=== PATIENT | male | born 1970 | race Caucasian/White ===

== ENCOUNTER 2021-06-20 09:54 | Emergency (ER) | payer BC, SELFPAY ==
--- NOTE | ~2021-06-20 | XR_ITS ---
EXAMINATION: XR chest 2V DATE: 06/20/2021 10:22 INDICATION: Midsternal chest pain TECHNIQUE: PA and lateral views of the chest were obtained. COMPARISON: None FINDINGS: The lungs are clear with no focal airspace opacities, pulmonary edema, pleural effusion or pneumothor ax. The cardiomediastinal silhouette is normal. Mild thoracic spondylosis. IMPRESSION: 1. No acute cardiopulmonary disease. Reviewed, dictated and finalized at location A.
[2021-06-20 09:56] VITALS: BP 206/102; PULSE 89; RESP 16; TEMP 36.6; O2SAT 99
--- NOTE | 2021-06-20 09:57 | ECG_ITS ---
Measurements Intervals [place] Rate: 82 P: 27 OR: 171 QRS: 43 QRSD: 103 T: 2 QT: 378 QTc: 442 Interpretive Statements SINUS RHYTHM BORDERLINE R WAVE PROGRESSION, ANTERIOR LEADS MINIMAL Q WAVES- INFERIOR LEADS BORDERLINE ECG Electronically Signed On 06-20-2021 14:34:08 CDT by Feliciano Singleton D.O.
[2021-06-20 10:19] LABS: Basophils Absolute Auto 0.1 K/mm3 (0.0-0.1); Basophils Percent Auto 1.3 % (0.2-1.2); Eosinophils Absolute Auto 0.2 K/mm3 (0-0.3); Eosinophils Percent Auto 2.8 % (0-4.4); Hematocrit 41.7 % (42.0-52.0); Hemoglobin 14.2 g/dL (14.0-18.0); Immature Granulocyte Absolute 0.04 K/mm3 (0.00-0.031); Immature Granulocyte Percent A 0.5 % (0-0.5); Lymphocytes Absolute Auto 2.94 K/mm3 (0.9-3.2); Lymphocytes Percent Auto 34.7 % (18.3-44.2); Mean Corpuscular HGB Conc 34.1 g/dl (32-36); Mean Corpuscular Hemoglobin 28.4 pg (26-34); Mean Corpuscular Volume 83.4 fl (80-100); Mean Platelet Volume 9.3 fl (7.4-10.4); Monocytes Absolute Auto 0.9 K/mm3 (0.1-0.6); Monocytes Percent Auto 10.7 % (2.6-8.5); Neutrophils Absolute Auto 4.2 K/mm3 (1.3-6.7); Platelet Count Result 282 k/mm3 (150-375); Red Cell Distribution Width 13.1 % (11.5-14.5); White Blood Count 8.5 K/mm3 (4.5-10.0)
[2021-06-20 10:29] LABS: Anion Gap 11 mmol/L (8-16); Blood Urea Nitrogen 14 mg/dL (9-20); Calcium 9.5 mg/dL (8.4-10.2); Carbon Dioxide 30 mmol/L (22-30); Chloride 102 mmol/L (98-107); Estimated CRCL calculation 99 ml/min; Estimated Glomerular Filt Rate > 60; Glucose 148 mg/dL (65-110); Potassium 4.7 mmol/L (3.4-5.0); Sodium 143 mmol/L (137-145)
[2021-06-20 10:31] LABS: INR 0.8; Prothrombin Time 11.4 Seconds (11.1-14.7)
[2021-06-20 10:32] LABS: Partial Thromboplastin Time 25.5 SECONDS (22.3-36.8)
[2021-06-20 10:46] LABS: Troponin I < 0.012 ng/mL (0.000-0.034)
[2021-06-20 11:15] VITALS: BP 165/90; PULSE 83; RESP 18; O2SAT 99
[2021-06-20 12:43] VITALS: BP 167/81; PULSE 73; RESP 18; O2SAT 99
--- NOTE | 2021-06-20 12:46 | ED.CHESTPAIN ---
HPI - Chest Pain General Chief Complaint: Chest Pain Stated Complaint: CP for a few weeks Time Seen by Provider: 06/20/21 11:49 Source: patient Mode of arrival: ambulatory Limitations: no limitations History of Present Illness MD complaint: chest pain and chest discomfort Onset (ago): week(s) (6) Timing of current episode: episodic and increasing Prior episodes: Yes Onset: during rest, during exertion and other (In the evenings) Pain location: substernal and epigastric Pain radiation: other (Left anterior chest) Severity: moderate Quality: aching and heaviness Relieving factors: nothing Exacerbating factors: stress Associated symptoms: other (No nausea, no vomiting, no diaphoresis does have shortness of breath with chest pain occasionally) Treatment prior to arrival: none Risk Factors Coronary artery disease risk factors: diabetes, hyperlipidemia and hypertension Thoracic aortic dissection risk factors: none Related Data Allergies Allergy/AdvReac Type Severity Reaction Status Date / Time Sulfa (Sulfonamide Allergy Other Verified 06/20/21 11:14 Antibiotics) Review of Systems Review of Systems: CONSTITUTIONAL: no fever, no weight loss, no confusion EYES: no vision changes, no eye pain ENT: no rhinorrhea, no sore throat, no difficulty swallowing CARDIOVASCULAR: positive for chest pain, no leg edema, no palpitations RESPIRATORY: no cough, positive for shortness of breath, no hemoptysis GASTROINTESTINAL: no abdominal pain, no nausea, no vomiting, no diarrhea GENITOURINARY: no flank pain, no dysuria, no hematuria SKIN: no rash, no jaundice MUSCULOSKELETAL: no back pain, no trauma. NEUROLOGIC: No headache, no dizziness, no focal weakness PSYCHIATRIC: No hallucinations, no suicidal ideation Exam Narrative: General: alert, afebrile, answering all questions appropriately Head: normocephalic, atraumatic Eyes: EOMI bilaterally, anicteric, no injection ENT: moist mucous membranes, oropharynx patent, no rhinorrhea Neck: supple, trachea midline, no JVD Chest: equal chest rise bilaterally, no chest wall trauma noted Lungs: clear to auscultation bilaterally, respirations unlabored CV: regular rate, no RAE B, calf size equal bilaterally Abd: soft, non-distended, non-tender, no rebound, no gaurding, negative Mejía's EXT: no deformity noted, moving all extremities equally Skin: warm, dry, no pallor Neuro: alert, oriented x 3; CN 2-12 grossly intact, no dysarthria Psych: affect appropriate, though content normal Course Course Emergency Course: Patient remained chest pain-free in the ED. Troponin negative x2. EKG normal sinus rhythm with no acute changes no ectopy. Heart score equals 3. Patient feels safe for discharge discharge and will follow up with his primary doctor this week without fail. Patient told to return if chest pain, shortness of breath, fever, productive cough leg swelling or any concern Reevaluation(s) Reevaluation #1: Patient remains chest pain-free second troponin pending normal sinus rhythm on the monitor Date: 06/20/21 Time: 12:51 Vital Signs Vital signs: Vital Signs Temperature 36.6 C 06/20/21 09:56 Pulse Rate 89 06/20/21 09:56 Respiratory Rate 16 06/20/21 09:56 Blood Pressure 206/102 H 06/20/21 09:56 Pulse Oximetry 99 06/20/21 09:56 Temperature 36.6 C 06/20/21 09:56 Pulse Rate 73 06/20/21 12:43 Respiratory Rate 18 06/20/21 12:43 Blood Pressure 167/81 H 06/20/21 12:43 Pulse Oximetry 99 06/20/21 12:43 MDM - Chest Pain Differential Diagnosis Differential diagnosis: Likely stable angina, unstable angina pectoris, atypical chest pain, st elevation myocardial infarction, chest pain and biliary colic Medical Records Data Attestation: I reviewed the patient's medical records. Lab Data Attestation: I reviewed the patient's lab results. Result diagrams: 06/20/21 10:13 06/20/21 10:13 Labs: Lab Results 06/20/21 06/20/21 06/20/21 Range/Units
[2021-06-20 13:00] LABS: Troponin I < 0.012 ng/mL (0.000-0.034)
[2021-06-20 14:05] VITALS: BP 135/75; PULSE 74; RESP 16; O2SAT 100
== END 2021-06-20 14:06 | disposition home or self-care (01) ==
PROVIDERS: Emergency Medicine; Emergency Provider Emergency Medicine; PCP Student in an Organized Health Care Education/Training Program
DX: R07.9 Chest pain, unspecified (principal); E11.9 Type 2 diabetes mellitus without complications; E78.5 Hyperlipidemia, unspecified; I10 Essential (primary) hypertension
CPT/HCPCS: 36415; 71046; 80048; 84484; 85025; 85610; 85730; 93005; 99284

== ENCOUNTER → 2022-05-12 11:57 | Outpatient (CLI) | payer BC, SELFPAY ==
--- NOTE | ~2022-05-12 | MR_ITS ---
EXAMINATION: MR brain/brain stem wo/w con DATE: 05/12/2022 12:51 INDICATION: Dizziness. TECHNIQUE: Magnetic resonance imaging (MRI) of the brain and brainstem was performed without and with 18 mL MultiHance intravenous contrast. COMPARISON: None. FINDINGS: There are scattered areas of nonspecific increased T2-weighted signal intensity in the cere bral white matter, which is within normal limits for the patient's age. There is no intracranial hemo rrhage, acute infarction, or abnormal intracranial mass lesion. The ventricles are normal in size. Th ere is mild mucosal thickening in the paranasal sinuses. The internal auditory canals and inner and m iddle ears are normal. The mastoid air cells are normal. The orbits are normal. IMPRESSION: 1. Normal aging brain. Reviewed, dictated and finalized at location A. IMPRESSION: 1. Normal aging brain.
== END ==
PROVIDERS: PCP Student in an Organized Health Care Education/Training Program; Visit Provider Student in an Organized Health Care Education/Training Program
DX: R42 Dizziness and giddiness (principal)
CPT/HCPCS: 70553; A9577

== ENCOUNTER 2022-09-05 15:02 | Emergency (ER) | payer BC, SELFPAY ==
[2022-09-05] VITALS (18 sets, daily range): BP systolic 127–171; BP diastolic 73–99; PULSE 93–184; RESP 12–31; TEMP 36.6; O2SAT 96–100
--- NOTE | ~2022-09-05 | XR_ITS ---
EXAMINATION: XR chest 1V portable INDICATION: Heart palpitations TECHNIQUE: Portable AP chest at 1552 hours COMPARISON: 06/20/2021 FINDINGS: The lungs are free of acute opacities. No pleural effusion or pneumothorax. The cardiomedia stinal silhouette is normal. IMPRESSION: 1. No acute cardiopulmonary abnormality. Reviewed, dictated and finalized at location L. [facility]
--- NOTE | 2022-09-05 15:04 | ECG_ITS ---
Measurements Intervals [place] Rate: 173 P: [place]: 0 QRS: 76 QRSD: 101 T: 37 QT: 272 QTc: 463 Interpretive Statements ATRIAL FIBRILLATION WITH RAPID VENTRICULAR RESPONSE MODERATE ST DEPRESSION ABNORMAL ECG COMPARED TO ECG 06/20/2021 10:02:41 ATRIAL FIBRILLATION NOW PRESENT ST (T WAVE) DEVIATION NOW PRESENT Electronically Signed On 09-05-2022 18:06:13 [employer] by Benito Adamson M.D.
[2022-09-05] MEDS: SODIUM CHLORIDE 0.9% IV 1,000 ML 999 ML IV CONT (15:30)
[2022-09-05 15:32] LABS: Basophils Absolute Auto 0.1 K/mm3 (0.0-0.1); Basophils Percent Auto 1.4 % (0.2-1.2); Eosinophils Absolute Auto 0.6 K/mm3 (0-0.3); Hematocrit 45.5 % (42.0-52.0); Hemoglobin 15.5 g/dL (14.0-18.0); Immature Granulocyte Absolute 0.06 K/mm3 (0.00-0.031); Immature Granulocyte Percent A 0.6 % (0-0.5); Lymphocytes Absolute Auto 3.67 K/mm3 (0.9-3.2); Lymphocytes Percent Auto 35.4 % (18.3-44.2); Mean Corpuscular HGB Conc 34.1 g/dl (32-36); Mean Corpuscular Hemoglobin 28.4 pg (26-34); Mean Corpuscular Volume 83.5 fl (80-100); Mean Platelet Volume 9.3 fl (7.4-10.4); Monocytes Absolute Auto 1.2 K/mm3 (0.1-0.6); Monocytes Percent Auto 11.8 % (2.6-8.5); Neutrophils Absolute Auto 4.7 K/mm3 (1.3-6.7); Neutrophils Percent Auto 44.8 % (45.5-73.1); Platelet Count Result 309 k/mm3 (150-375); Red Blood Count 5.45 M/mm3 (4.6-6.20); Red Cell Distribution Width 12.4 % (11.5-14.5); White Blood Count 10.4 K/mm3 (4.5-10.0)
[2022-09-05 15:40] LABS: Alanine Aminotransferase 46 U/L (6-50); Albumin Level 5.1 g/dL (3.5-5.1); Alkaline Phosphatase 56 U/L (38-126); Anion Gap 15 mmol/L (8-16); Aspartate Amino Transferase 45 U/L (17-59); Bilirubin,Total 0.7 mg/dL (0.2-1.3); Blood Urea Nitrogen 15 mg/dL (9-20); Calcium 9.5 mg/dL (8.4-10.2); Carbon Dioxide 25 mmol/L (22-30); Chloride 97 mmol/L (98-107); Estimated CRCL calculation 78 ml/min; Estimated Glomerular Filt Rate > 60; Glucose 300 mg/dL (65-110); Lipase 178 U/L (23-300); Potassium 4.2 mmol/L (3.4-5.0); Sodium 137 mmol/L (137-145)
--- NOTE | 2022-09-05 15:52 | ED.GENADULT ---
HPI - General Adult General Chief complaint: Arrhythmia/Palpitations Stated complaint: heart palpitations Time Seen by Provider: 09/05/22 15:29 History of Present Illness HPI narrative: 55-year-old male history of hypertension, diabetes presented with palpitations. Per patient earlier today he was lifting weights, when he believes he lifted too much weights and started feeling palpitations. Palpitations did not, presented to the ED for further evaluation. He reports having an episode of this before. He denied chest pain, shortness of breath, fevers, chills, nausea, vomiting, abdominal pain, dysuria, sick contacts, diarrhea. Past medical history: Hypertension, diabetes Past surgical history: Denied Medications: Antihypertensive, medication for diabetes Allergies: Sulfa drugs Social: Denied smoking, alcohol, recreational drugs Related Data Allergies Allergy/AdvReac Type Severity Reaction Status Date / Time Sulfa (Sulfonamide Allergy Other Verified 06/20/21 11:14 Antibiotics) Review of Systems Review of Systems: See HPI PMFSH Comments See HPI Exam Narrative: APPEARANCE: Alert, calm and cooperative, no acute distress, phonating, sitting comfortably during visit HEAD: atraumatic EYES: Pupils equal round an reactive to light, extra ocular movements intact, no conjunctival injection NOSE: Normal no drainage NECK: Supple, without meningismus RESPIRATORY: Lungs clear to auscultation bilaterally, no wheezes/rales/rhonchi, breathing comfortably CARDIOVASCULAR: Tachycardia, normal rhythm, no visible jugular venous distension; POCUS hyperdynamic, no evidence of right heart strain, no pericardial effusion, IVC collapsible ABDOMINAL: Soft, nontender, nondistended, no guarding, no rebound/peritoneal signs, no costovertebral tenderness to palpation BACK: no midline tenderness to palpation, no step offs EXTREMITIES: No edema, palpable peripheral pulses, warm, well perfused, no tenderness to bilateral calves. NEURO: Alert, moving all extremities symmetrically SKIN:: Warm, dry. Normal color PSYCHIATRIC: Normal affect/mood Course Reevaluation(s) Reevaluation #1: Patient reassessed. Continued to be well-appearing, without medical complaints, vitals significantly improved, within normal limits. Repeat EKG within normal limits. Patient with primary and cardiology follow-up. Bloodwork reviewed, noted to be unremarkable. Physical exam benign, vitals stable. The patient tolerated oral intake, is alert and oriented, speaking with clear speech, ambulated with steady gait, and has remained hemodynamically stable throughout the ED visit. He has close follow up with cardiology and his [facility] care provider. Areas of diagnostic uncertainty discussed and strict return precautions shared with patient; encouraged to return to the emergency department if symptoms returned or worsened. The patient is safe to be discharged with follow up, provided he abide by the verbalized and written instruction, to which the patient has express understanding. Date: 09/05/22 Time: 17:00 Vital Signs Vital signs: Vital Signs Pulse Rate 181 H 09/05/22 15:13 Respiratory Rate 31 H 09/05/22 15:13 Pulse Oximetry 96 09/05/22 15:13 Temperature 97.9 F 09/05/22 15:16 Pulse Rate 102 H 09/05/22 16:30 Respiratory Rate 16 09/05/22 16:30 Blood Pressure 171/91 H 09/05/22 15:16 Pulse Oximetry 97 09/05/22 16:30 Medical Decision Making MDM Narrative Medical decision making narrative: Medical Decision Making 52-year-old male history of hypertension, diabetes presented with palpitations in the setting of heavy lifting. He denied chest pain, shortness of breath, nausea, vomiting, or other complaints. Physical exam benign, very well appearing, vitals notable for tachycardia up to 180s, remaining vitals within normal limits. Impression: History and exam suggestive of SVT secondary to heavy lifting. Modified Valsalva maneuver attempted, successful on
[2022-09-05 15:53] LABS: Troponin I < 0.012 ng/mL (0.000-0.034)
[2022-09-05 15:54] LABS: INR 0.9; Prothrombin Time 12.1 Seconds (11.1-14.7)
[2022-09-05 15:55] LABS: Partial Thromboplastin Time 24.9 SECONDS (22.3-36.8)
--- NOTE | 2022-09-05 16:44 | ECG_ITS ---
Measurements Intervals [place] Rate: 96 P: 30 [place]: 175 QRS: 37 QRSD: 107 T: 5 QT: 347 QTc: 440 Interpretive Statements SINUS RHYTHM POSSIBLE ANTERIOR MYOCARDIAL INFARCTION OF INDETERMINATE AGE CANNOT RULE OUT INFERIOR MYOCARDIAL INFARCTION, OF INDETERMINATE AGE ABNORMAL ECG COMPARED TO ECG 09/05/2022 15:10:41 ATRIAL FIBRILLATION IS NO LONGER PRESENT. MYOCARDIAL INFARCT FINDING NOW PRESENT Electronically Signed On 09-05-2022 18:09:24 [employer] by Benito Adamson M.D.
== END 2022-09-05 18:08 | disposition home or self-care (01) ==
PROVIDERS: Emergency Provider Emergency Medicine; PCP Student in an Organized Health Care Education/Training Program
DX: I47.1 Supraventricular tachycardia (principal)
CPT/HCPCS: 36415; 71045; 80053; 83690; 84484; 85025; 85610; 85730; 93005; 96360; 99284; J0153; J0282; J7030

== ENCOUNTER 2024-05-20 07:48 | Emergency (ER) | payer BC, SELFPAY ==
--- NOTE | ~2024-05-20 | XR_ITS ---
EXAMINATION: XR chest 2V DATE: 05/20/2024 08:32 INDICATION: Shortness of breath. Palpitations. TECHNIQUE: Frontal and lateral views of the chest were obtained. COMPARISON: Chest single view 09/05/2022 FINDINGS: There is no pneumonia, pleural effusion, or pneumothorax. The heart size is normal. IMPRESSION: 1. No acute cardiopulmonary disease. Reviewed, dictated and finalized at location A.
[2024-05-20 07:56] VITALS: BP 158/125; PULSE 144; RESP 23; TEMP 36.6; O2SAT 99
[2024-05-20 08:00] VITALS: RESP 20; O2SAT 100
--- NOTE | 2024-05-20 08:08 | ECG_ITS ---
Test Date: 2024-05-20 08:16:26 Measurements Intervals [place] Rate: 116 P: 0 TN: 0 QRS: 65 QRSD: 98 T: -17 QT: 295 QTc: 411 Interpretive Statements ATRIAL FIBRILLATION WITH RAPID VENTRICULAR RESPONSE BORDERLINE R WAVE PROGRESSION, ANTERIOR LEADS CONSIDER INFERIOR INFARCT, AGE INDETERMINATE BASELINE ARTIFACT- I, II, AVR, AVF ABNORMAL ECG No previous ECG available for comparison Electronically Signed On 05-20-2024 08:44:08 CDT by Feliciano Singleton D.O.
[2024-05-20 08:22] VITALS: PULSE 127; O2SAT 98
[2024-05-20 08:33] LABS: Basophils Absolute Auto 0.1 K/mm3 (0.0-0.1); Eosinophils Absolute Auto 0.2 K/mm3 (0-0.3); Eosinophils Percent Auto 2.1 % (0-4.4); Hematocrit 47.7 % (42.0-52.0); Hemoglobin 16.3 g/dL (14.0-18.0); Immature Granulocyte Absolute 0.08 K/mm3 (0.00-0.031); Immature Granulocyte Percent A 0.9 % (0-0.5); Lymphocytes Absolute Auto 2.61 K/mm3 (0.9-3.2); Lymphocytes Percent Auto 28.9 % (18.3-44.2); Mean Corpuscular HGB Conc 34.2 g/dl (32-36); Mean Corpuscular Hemoglobin 28.6 pg (26-34); Mean Corpuscular Volume 83.8 fl (80-100); Mean Platelet Volume 9.7 fl (7.4-10.4); Monocytes Absolute Auto 1.2 K/mm3 (0.1-0.6); Monocytes Percent Auto 13.2 % (2.6-8.5); Neutrophils Absolute Auto 4.9 K/mm3 (1.3-6.7); Neutrophils Percent Auto 53.9 % (45.5-73.1); Platelet Count Result 264 k/mm3 (150-375); Red Blood Count 5.69 M/mm3 (4.6-6.20); Red Cell Distribution Width 13.9 % (11.5-14.5)
[2024-05-20 08:47] LABS: Alanine Aminotransferase 79 U/L (6-50); Albumin Level 4.8 g/dL (3.5-5.1); Alkaline Phosphatase 29 U/L (38-126); Anion Gap 12 mmol/L (4-12); Aspartate Amino Transferase 57 U/L (17-59); Bilirubin,Total 0.8 mg/dL (0.2-1.3); Blood Urea Nitrogen 17 mg/dL (9-20); Calcium 9.3 mg/dL (8.4-10.2); Carbon Dioxide 26 mmol/L (22-30); Chloride 97 mmol/L (98-107); Estimated CRCL calculation 86 ml/min; Estimated Glomerular Filt Rate > 60; Glucose 254 mg/dL (65-110); Potassium 3.9 mmol/L (3.4-5.0); Sodium 135 mmol/L (137-145)
[2024-05-20 09:31] VITALS: BP 120/82; PULSE 95; RESP 14; O2SAT 97
--- NOTE | 2024-05-20 10:18 | ECG_ITS ---
Test Date: 2024-05-20 10:36:40 Measurements Intervals [place] Rate: 93 P: 20 [place]: 198 QRS: 58 QRSD: 91 T: -13 QT: 332 QTc: 413 Interpretive Statements SINUS RHYTHM CONSIDER ANTERIOR INFARCT, AGE INDETERMINATE CONSIDER INFERIOR INFARCT, AGE INDETERMINATE BASELINE ARTIFACT- I, II, AVR, AVL, AVF, V4-V6 ABNORMAL ECG Compared to ECG 05/20/2024 08:16:26 Atrial fibrillation no longer present Electronically Signed On 05-20-2024 10:41:27 CDT by Feliciano Singleton D.O.
--- NOTE | 2024-05-20 10:24 | ED.SOB ---
HPI - SOB/Dyspnea General Chief Complaint: Shortness of Breath/Dyspnea Stated Complaint: HTN Time Seen by Provider: 05/20/24 10:01 History of Present Illness HPI Narrative: 54-year-old male with history of hypertension and paroxysmal atrial fibrillation presents to the emergency department for palpitations. Patient states he woke up this morning felt his heart beating very quickly. He took his blood pressure was found to be 200/1 0s. He came to the ED for further evaluation. He states after an hour being in the emergency department is symptoms have spontaneously resolved. On my evaluation he states he feels fine and has no complaints. He denies current palpitations, chest pain or shortness of breath, lightheadedness or syncope, nausea or vomiting, diaphoresis, vision changes or focal numbness or weakness. 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 He has an appointment in June for follow-up. He states he had a Cardiac ablation performed at [facility] 2 years ago without success. he is not anticoagulated and does not take daily aspirin. Related Data Home Medications Medication Instructions Recorded Confirmed gabapentin 100 mg capsule 100 mg PO HS 05/20/24 05/20/24 glipizide 10 mg tablet, extended 10 mg PO DAILY 05/20/24 05/20/24 release 24 hr hydrochlorothiazide 12.5 mg tablet 12.5 mg PO DAILY 05/20/24 05/20/24 losartan 100 mg tablet 100 mg PO DAILY 05/20/24 05/20/24 metformin 1,000 mg tablet 1,000 mg PO BID 05/20/24 05/20/24 metoprolol succinate 25 mg 12.5 mg PO DAILY 05/20/24 05/20/24 tablet,extended release 24 hr rosuvastatin 20 mg tablet 20 mg PO HS 05/20/24 05/20/24 trazodone 50 mg tablet 50 mg PO HS 05/20/24 05/20/24 Allergies Allergy/AdvReac Type Severity Reaction Status Date / Time Sulfa (Sulfonamide Allergy Other Verified 05/20/24 07:55 Antibiotics) Review of Systems Review of Systems: All systems reviewed & are unremarkable except as noted in HPI and below Exam Narrative: GENERAL: Well-appearing, well-nourished, and in no acute distress. HEAD: Normocephalic, atraumatic. EYES: PERRLA and EOMI. ENT: Nares clear, no rhinorrhea or epistaxis. Mucous membranes moist. NECK: Supple. CHEST: Clear to auscultation. No respiratory distress. HEART: Regular rate and rhythm. No murmur heard. ABDOMEN: Soft, nontender, nondistended, normal active bowel sounds. EXTREMITIES: Normal range of motion. No edema. SKIN: Warm, dry, no rash. NEURO: No focal deficits. Alert and oriented x3 Course Vital Signs Vital signs: Vital Signs Temperature 97.8 F 05/20/24 07:56 Pulse Rate 144 H 05/20/24 07:56 Respiratory Rate 23 H 05/20/24 07:56 Blood Pressure 158/125 H 05/20/24 07:56 Pulse Oximetry 99 05/20/24 07:56 Oxygen Delivery Room Air 05/20/24 07:56 Temperature 97.8 F 05/20/24 07:56 Pulse Rate 95 05/20/24 09:31 Respiratory Rate 14 05/20/24 09:31 Blood Pressure 120/82 05/20/24 09:31 Pulse Oximetry 97 05/20/24 09:31 Oxygen Delivery Room Air 05/20/24 08:22 MDM - SOB/Dyspnea MDM Narrative Medical decision making narrative: 54-year-old male with history of hypertension and paroxysmal AFib presents to emergency department for palpitations and hypertension this morning. Triage vitals are significant for hypertension of 158/125 in tachycardia of 144 with tachypnea of 23. EKG in triage shows atrial fibrillation with RVR with a rate of 116 Q-waves and inverted T-waves in the inferior leads which is unchanged from prior, otherwise no ischemic changes. Upon my evaluation patient's vitals have normalized, blood pressure is now 120/82, heart rate is 95 in respirations are 14. Patient appears to be in normal sinus rhythm on the potline monitor. Will obtain repeat EKG and evaluate for electrolyte derangements. Given he is asymptomatic and has a hx of paroxysmal afib and RVR, I have low suspicion for ACS as source of symptoms. CBC without leukocytosis. Chemistries wit
[2024-05-20 10:44] LABS: Magnesium 1.7 mg/dL (1.6-2.3)
[2024-05-20 10:50] LABS: INR 0.9; Prothrombin Time 12.8 Seconds (11.1-14.7)
[2024-05-20 11:24] VITALS: BP 137/88; PULSE 81; RESP 18; TEMP 36.6; O2SAT 97
== END 2024-05-20 11:28 | disposition home or self-care (01) ==
PROVIDERS: Student in an Organized Health Care Education/Training Program; Emergency Provider Physician Assistant; PCP Student in an Organized Health Care Education/Training Program
DX: I48.0 Paroxysmal atrial fibrillation (principal); I10 Essential (primary) hypertension; Z79.84 Long term (current) use of oral hypoglycemic drugs; Z79.899 Other long term (current) drug therapy; R94.31 Abnormal electrocardiogram [ECG] [EKG]
CPT/HCPCS: 36415; 71046; 80053; 83735; 85025; 85610; 85730; 93005; 99284

== ENCOUNTER 2024-06-09 10:13 | Emergency (ER) | payer BC, SELFPAY ==
--- NOTE | ~2024-06-09 | XR_ITS ---
XR chest 2V Ordering provider: Costa Brink III, DO History: 54 years Male with . afib, PALPITATIONS, . Comparison: May 20, 2024 FINDINGS: MEDIASTINUM: The cardiac silhouette is not enlarged. LUNGS: No infiltrates, effusions or pneumothorax. OTHER: No free air under the diaphragm. Degenerative spine. IMPRESSION: No acute cardiopulmonary pathology. Reviewed, dictated and finalized at location A.
[2024-06-09 10:18] VITALS: BP 171/70; PULSE 90; RESP 16; TEMP 36.6; O2SAT 100
--- NOTE | 2024-06-09 10:21 | ECG_ITS ---
Test Date: 2024-06-09 10:26:19 Measurements Intervals [place] Rate: 126 P: 0 [place]: 0 QRS: 77 QRSD: 106 T: 12 QT: 321 QTc: 466 Interpretive Statements ATRIAL FIBRILLATION WITH RAPID VENTRICULAR RESPONSE CONSIDER ANTERIOR INFARCT, AGE INDETERMINATE CONSIDER INFERIOR INFARCT, AGE INDETERMINATE BASELINE ARTIFACT- I, II, III, AVR, AVL, AVF ABNORMAL ECG Compared to ECG 05/20/2024 10:36:40 ATRIAL FIBRILLATION NOW PRESENT Electronically Signed On 06-09-2024 11:05:22 CDT by Feliciano Singleton D.O.
[2024-06-09 10:41] LABS: Basophils Absolute Auto 0.2 K/mm3 (0.0-0.1); Basophils Percent Auto 1.5 % (0.2-1.2); Eosinophils Absolute Auto 0.4 K/mm3 (0-0.3); Eosinophils Percent Auto 3.2 % (0-4.4); Hematocrit 47.8 % (42.0-52.0); Hemoglobin 16.5 g/dL (14.0-18.0); Immature Granulocyte Absolute 0.11 K/mm3 (0.00-0.031); Immature Granulocyte Percent A 0.9 % (0-0.5); Lymphocytes Absolute Auto 3.83 K/mm3 (0.9-3.2); Lymphocytes Percent Auto 32.5 % (18.3-44.2); Mean Corpuscular HGB Conc 34.5 g/dl (32-36); Mean Corpuscular Hemoglobin 28.6 pg (26-34); Mean Corpuscular Volume 82.8 fl (80-100); Mean Platelet Volume 9.5 fl (7.4-10.4); Monocytes Absolute Auto 1.7 K/mm3 (0.1-0.6); Monocytes Percent Auto 14.3 % (2.6-8.5); Neutrophils Absolute Auto 5.6 K/mm3 (1.3-6.7); Neutrophils Percent Auto 47.6 % (45.5-73.1); Platelet Count Result 330 k/mm3 (150-375); Red Blood Count 5.77 M/mm3 (4.6-6.20); Red Cell Distribution Width 13.5 % (11.5-14.5); White Blood Count 11.8 K/mm3 (4.5-10.0)
[2024-06-09 10:51] LABS: INR 1.1
[2024-06-09 10:52] LABS: Partial Thromboplastin Time 27.4 Seconds (22.3-36.8)
[2024-06-09 10:57] LABS: Alanine Aminotransferase 75 U/L (6-50); Alkaline Phosphatase 29 U/L (38-126); Anion Gap 15 mmol/L (4-12); Aspartate Amino Transferase 51 U/L (17-59); Bilirubin,Total 0.8 mg/dL (0.2-1.3); Blood Urea Nitrogen 23 mg/dL (9-20); Calcium 10.3 mg/dL (8.4-10.2); Carbon Dioxide 26 mmol/L (22-30); Chloride 95 mmol/L (98-107); Estimated CRCL calculation 70 ml/min; Estimated Glomerular Filt Rate > 60; Glucose 202 mg/dL (65-110); Lipase 479 U/L (23-300); Potassium 3.5 mmol/L (3.4-5.0); Sodium 136 mmol/L (137-145)
--- NOTE | 2024-06-09 10:57 | ED.ARRPALP ---
HPI - Arrhythmia/Palpitations General Chief Complaint: Arrhythmia/Palpitations Stated Complaint: palpitations Time Seen by Provider: 06/09/24 10:52 History of Present Illness HPI narrative: Pt with history of paroxysmal a fib on apixaban presents with palpitations and fast irregular heart beat about an hour after having sex this morning. Pt denies CP or SOB. Pt has history of this and usually rate comes down in ER. Related Data Home Medications Medication Instructions Recorded Confirmed gabapentin 100 mg capsule 100 mg PO HS 05/20/24 05/20/24 glipizide 10 mg tablet, extended 10 mg PO DAILY 05/20/24 05/20/24 release 24 hr hydrochlorothiazide 12.5 mg tablet 12.5 mg PO DAILY 05/20/24 05/20/24 losartan 100 mg tablet 100 mg PO DAILY 05/20/24 05/20/24 metformin 1,000 mg tablet 1,000 mg PO BID 05/20/24 05/20/24 metoprolol succinate 25 mg 12.5 mg PO DAILY 05/20/24 05/20/24 tablet,extended release 24 hr rosuvastatin 20 mg tablet 20 mg PO HS 05/20/24 05/20/24 trazodone 50 mg tablet 50 mg PO HS 05/20/24 05/20/24 Allergies Allergy/AdvReac Type Severity Reaction Status Date / Time Sulfa (Sulfonamide Allergy Other Verified 06/09/24 10:14 Antibiotics) Review of Systems Review of Systems: All systems reviewed & are unremarkable except as noted in HPI and below Exam Const: General: healthy appearing and no acute distress Nutritional Appearance: well nourished Orientation/consciousness: patient oriented x3 Limitations: no limitations Chest: Chest palpation & inspection: normal inspection of the chest Resp: Effort & Inspection: normal respiratory effort Auscultation: clear to auscultation bilaterally Cardio: Rate: tachycardic Rhythm: abnormal rhythm GI: Auscultation: normal bowel sounds Rectal Exam: normal sphincter tone Skin: General skin exam: normal color Rashes: no rashes Wounds: no wounds Neuro: General: patient oriented x3, moves all extremities, no meningeal signs, no focal motor deficits and CN's II-XI intact bilaterally Cranial nerves: Yes Nystagmus not present Speech: normal speech Extrem: General: normal to inspection and no clubbing, cyanosis or edema Psych: Mental Status: mental status grossly normal Affect: normal affect Attitude: cooperative Course Vital Signs Vital signs: Vital Signs Temperature 97.8 F 06/09/24 10:18 Pulse Rate 90 06/09/24 10:18 Respiratory Rate 16 06/09/24 10:18 Blood Pressure 171/70 H 06/09/24 10:18 Pulse Oximetry 100 06/09/24 10:18 Temperature 97.6 F 06/09/24 12:15 Pulse Rate 96 06/09/24 12:15 Respiratory Rate 16 06/09/24 12:15 Blood Pressure 112/72 06/09/24 12:15 Pulse Oximetry 100 06/09/24 12:15 MDM - Arrhythmia/Palpitations MDM Narrative Medical decision making narrative: Pt with hx of paroxysmal a fib on thinners preswents in a fib with mild RVR. HR on my exam now 108. was 120's on ekg. Pt denies CP. Will give small fluid bolus and check labs to rule out electolyte abnormalities and trop to rule out cardiac injury and observe. Rate controlled with bolus of NS rate now in 90's. Pt on blood thinners and metroprolol already. labs look fine. 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 advised to give him a call and let him know about visit to ER. Pt wants to go home advised to return if rate stays up, or persistent CP or any concerns Differential Diagnosis Differential diagnosis: Likely palpitations, artial fibrillation, artial flutter and supraventricular tachycardia Lab Data 06/09/24 10:34 06/09/24 10:34 Labs: Lab Results 06/09/24 Range/Units 10:34 WBC 11.8 H (4.5-10.0) K/mm3 RBC 5.77 (4.6-6.20) M/mm3 Hgb 16.5 (14.0-18.0) g/dL Hct 47.8 (42.0-52.0) % MCV 82.8 (80-100) fl MCH 28.6 (26-34) pg MCHC 34.5 (32-36) g/dl RDW 13.5 (11.5-14.5) % Plt Count 330 (150-375) k/mm3 MPV 9.5 (7.4-10.4) fl Immature Gran % (Auto) 0.9 H (0-0.5)
[2024-06-09 11:08] LABS: Troponin I < 0.012 ng/mL (0.000-0.034)
[2024-06-09] MEDS: SODIUM CHLORIDE 0.9% IV 500 ML 999 ML IV CONT (11:23)
[2024-06-09 11:25] VITALS: PULSE 103
[2024-06-09 11:55] VITALS: BP 113/68; PULSE 102; RESP 21; O2SAT 100
[2024-06-09 12:15] VITALS: BP 112/72; PULSE 96; RESP 16; TEMP 36.4; O2SAT 100
== END 2024-06-09 12:17 | disposition home or self-care (01) ==
PROVIDERS: Emergency Provider Emergency Medicine; PCP Student in an Organized Health Care Education/Training Program
DX: I48.0 Paroxysmal atrial fibrillation (principal); Z79.01 Long term (current) use of anticoagulants; Z79.84 Long term (current) use of oral hypoglycemic drugs; Z79.899 Other long term (current) drug therapy; R94.31 Abnormal electrocardiogram [ECG] [EKG]
CPT/HCPCS: 36415; 71046; 80053; 83690; 84484; 85025; 85610; 85730; 93005; 99284; J7040

== ENCOUNTER 2024-07-05 09:33 | Outpatient (CLI) | payer BC, SELFPAY ==
--- NOTE | ~2024-07-05 | MR_ITS ---
EXAMINATION: MR lumbar spine wo con DATE: 07/05/2024 10:02 INDICATION: Lumbar radiculopathy. TECHNIQUE: Magnetic resonance imaging (MRI) of the lumbar spine was performed without intravenous con trast. Sequences included sagittal T2-weighted FSE, sagittal T2-weighted FS FSE, sagittal T1-weighted FSE, and axial T2-weighted FSE. COMPARISON: None FINDINGS: There is 9 degrees levocurvature of lumbar spine. Vertebral body heights are normal. Interv ertebral disc heights are normal. The distal spinal cord signal intensity is normal. The conus medull kaylee is at T12-L1. The following disc levels are specifically discussed: L1-L2: The disc does not extend beyond the endplate margin. There is mild left facet joint osteoarthr itis. There is no neural foraminal stenosis. There is no central canal stenosis. L2-L3: The disc is mildly bulging. There is mild bilateral facet joint osteoarthritis. There is mild left neural foraminal stenosis. There is mild central canal stenosis. L3-L4: The disc is bulging and has an annular fissure. There is mild bilateral facet joint osteoarthr itis. There is mild bilateral neural foraminal stenosis. There is mild central canal stenosis. L4-L5: The disc is bulging. There is mild bilateral facet joint osteoarthritis. There is mild bilater al neural foraminal stenosis. There is mild central canal stenosis. L5-S1: The disc does not extend beyond the endplate margin. There is mild bilateral facet joint osteo arthritis. There is no neural foraminal stenosis. There is no central canal stenosis. IMPRESSION: 1. Mild lumbar spondylosis. Reviewed, dictated and finalized at location A. IMPRESSION: 1. Mild lumbar spondylosis.
== END 2024-07-05 09:34 | disposition home or self-care (01) ==
PROVIDERS: PCP Student in an Organized Health Care Education/Training Program; Visit Provider Student in an Organized Health Care Education/Training Program
DX: M54.16 Radiculopathy, lumbar region (principal); M43.06 Spondylolysis, lumbar region
CPT/HCPCS: 72148